=== PATIENT | female | born 1985 | race Caucasian/White ===

== ENCOUNTER 2021-11-22 12:23 | Emergency (ER) | payer OTHER, SELFPAY ==
[~2021-11-22] VITALS: Ht 167.6 cm; Wt 108.0 kg
[2021-11-22 12:25] VITALS: BP_SYST 143
--- NOTE | 2021-11-22 12:25 | NUR ---
Pt to remain in the ER lobby for evaluation.
--- NOTE | 2021-11-22 12:30 | NUR ---
Pt AAO and ambulatory reporting a sudden onset of diff breathing, SOB, and fast HR. Pt was seen in urgent care and a CXR and EKG was completed. Pt was referred here for blood work to r/o PE.
--- NOTE | 2021-11-22 12:32 | NUR ---
Ekg done with results given to
--- NOTE | 2021-11-22 12:38 | NUR ---
Dr. Ceron at bedside to assess.
--- NOTE | 2021-11-22 12:54 | NUR ---
Labs drawn and sent to lab.
--- NOTE | 2021-11-22 13:00 | NUR ---
examined by dr. hansen pt placed in tent
--- NOTE | 2021-11-22 13:03 | NUR ---
Covid swab obtained and sent.
[2021-11-22 13:12] LABS: BASOPHILS % (AUTO) 0.3 % (0.0-2.0); EOSINOPHILS % (AUTO) 0.3 % (0.0-4.0); HEMATOCRIT 38.4 % (36-48); HEMOGLOBIN 13.4 g/dL (12.0-16.0); LYMPHOCYTES # (AUTO) 0.8 K/uL (1.0-5.5); LYMPHOCYTES % (AUTO) 10.3 % (20.5-51.5); MEAN CORPUSCULAR HEMOGLOBIN 30 pg (27-31); MEAN CORPUSCULAR HGB CONC 35 % (32-36); MEAN CORPUSCULAR VOLUME 85 fL (79.0-98.0); MONOCYTES # (AUTO) 0.7 K/uL (0.0-1.0); MONOCYTES % (AUTO) 9.3 % (1.7-9.3); NEUTROPHILS # (AUTO) 6.2 K/uL (1.8-7.7); NEUTROPHILS % (AUTO) 79.8 % (40.0-70.0); PLATELET COUNT (AUTO) 256 K/uL (130-430); RED BLOOD CELL COUNT(AUTO) 4.53 MIL/uL (4.2-6.2); RED CELL DISTRIBUTION WIDTH 12.4 % (9.0-15.0); WHITE BLOOD COUNT (AUTO) 7.8 K/uL (4.8-10.8)
[2021-11-22 13:17] LABS: CALCIUM 8.9 mg/dL (8.4-11.0); CREATININE 0.78 mg/dL (0.55-1.30); POTASSIUM 3.8 mmol/L (3.5-5.1)
[2021-11-22 13:22] LABS: ALBUMIN 3.8 g/dL (3.4-4.8)
[2021-11-22] MEDS ORDERED: DEXA4TAB PO (14:53)
[2021-11-22] MEDS ORDERED: IVER3TAB PO (14:53)
[2021-11-22] MEDS ORDERED: ZINC50TA69 PO (14:53)
--- NOTE | 2021-11-22 14:57 | NUR ---
Patient given written and verbal discharge instructions and verbalizes understanding. ER MD discussed with patient the results and treatment provided. Patient in stable condition. ID arm band removed. Rx of none given. Patient educated on pain management and to follow up with PMD. Pain Scale . Opportunity for questions provided and answered. Medication side effect fact sheet provided.
[2021-11-22 14:58] VITALS: BP_SYST 143
== END 2021-11-22 14:58 | disposition home or self-care (01) ==
LOC: SED 12:23
DX: U07.1 COVID-19 (principal); R00.0 Tachycardia, unspecified; R00.2 Palpitations; Z79.899 Other long term (current) drug therapy
CPT/HCPCS: 36415; 80053; 83880; 84443; 85025; 85379; 93005; 99284